=== PATIENT | male | born 1980 | race Two or more races ===

== ENCOUNTER 2016-05-16 22:59 | Emergency (ER) | payer MEDICAID ==
[~2016-05-16] VITALS: Ht 167.6 cm; Wt 99.8 kg
[~2016-05-16 22:59] MED LIST: BACTRIM DS TAB1 EAC1 ORAL; CLINDAMYCIN HC150 MG ORAL; KEFLEX500 MG ORAL; NKM
[2016-05-16] MEDS ORDERED: NKM (23:09)
[2016-05-16] MEDS ORDERED: IBUPROFEN600 MG ORAL (23:51)
--- NOTE | 2016-05-16 23:58 | Emergency Room Report ---
History of Present Illness General Chief Complaint: Lower Extremity Injury Source: Patient Present Illness HPI Is a 35-year-old male presents with right ankle pain. He slipped and twisted his right ankle earlier today. Able to walk on it. Tender to walking. Pain is 4/10. No radiation. Denies any other injury. Allergies: Coded Allergies: No Known Allergies (Unverified , 10/21/14) Patient History Past Medical History: see triage record, old chart reviewed Past Surgical History: none Pertinent Family History: none Social History: Denies: smoking Immunizations: other Reviewed Nursing Documentation: PMH: Agreed, PSxH: Agreed Nursing Documentation-PMH Hx Neurological Problems: Yes - back pain Review of Systems Eye: Denies: blurred vision, eye pain ENT: Denies: ear pain, nose congestion, throat swelling Respiratory: Denies: cough, shortness of breath Cardiovascular: Denies: chest pain, palpitations Gastrointestinal: Denies: abdominal pain, diarrhea, nausea, vomiting Musculoskeletal: Reports: joint pain, Denies: back pain Skin: Denies: rash Neurological: Denies: headache, numbness Endocrine: Denies: increased thirst, increased urine Hematologic/Lymphatic: Denies: easy bruising All Other Systems: negative except mentioned in HPI Physical Exam Vital Signs Date Time Temp Pulse Resp B/P Pulse Ox O2 Delivery O2 Flow Rate FiO2 05/16/16 23:02 97.9 70 16 113/71 99 Room Air vitals normal Sp02 EP Interpretation: reviewed, normal General Appearance: well appearing, no apparent distress, alert Head: normocephalic, atraumatic Eyes: bilateral eye EOMI, bilateral eye PERRL ENT: hearing grossly normal, normal pharynx Neck: full range of motion, supple, no meningismus Respiratory: chest non-tender, lungs clear, normal breath sounds Cardiovascular #1: regular rate, rhythm, no murmur Gastrointestinal: normal bowel sounds, non tender, no mass, no organomegaly, no bruit, non-distended Musculoskeletal: back normal, gait/station normal, normal range of motion, other - Right ankle: Mild tenderneness and edema to lateral malleoulus. NVI. ankle is stable. pulses normal Psychiatric: mood/affect normal Skin: warm/dry Procedures Splinting Splinting : Consent: Verbal Location: Right ankle Pre-Made Type: aircast Splint: coaptation Pre-Proc Neuro Vasc Exam: normal Post-Proc Neuro Vasc Exam: normal Patient Tolerated: Well Complications: None Medical Decision Making Diagnostic Impression: Primary Impression: Right ankle sprain Qualified Codes: S93.401A - Sprain of unspecified ligament of right ankle, initial encounter ER Course Patient with ankle sprain. No fracture dislocation. Other X-Ray Diagnostic Results Other X-Ray Diagnostic Results : X-Ray Ordered: Right ankle Date: May 16, 2016 Time: 23:57 EP Interpretation: Yes Findings: no fractures, no dislocation, no soft tissue swelling Number of Views: 3 Last Vital Signs Date Time Temp Pulse Resp B/P Pulse Ox O2 Delivery O2 Flow Rate FiO2 05/16/16 23:02 97.9 70 16 113/71 99 Room Air Status: improved Disposition: HOME, SELF-CARE Condition: Stable Scripts Ibuprofen* (MOTRIN*) 600 Mg Tablet 600 MG ORAL THREE TIMES A DAY, #30 TAB 0 Refills Prov: ANURADHA DE LUNA M.D. 05/16/16 Referrals: NOT CHOSEN [facility]/,REFERRING (PCP) Patient Instructions: Ankle Sprain Additional Instructions: Followup with your DrTan in 7 days. Return if worse. ANURADHA DE LUNA M.D. May 16, 2016 23:58
[2016-05-17 00:05] VITALS: BP 113/71
--- NOTE | 2016-05-19 08:09 | Diagnostic Imaging Report ---
Indication: Right ankle pain Technique: Right ankle 3 views Comparison: None Findings: There is no acute fracture or dislocation. Bone mineralization is normal. Soft tissues are grossly unremarkable. Impression: No acute osseous abnormality.
== END 2016-05-17 00:05 | disposition home or self-care (01) ==
LOC: EMR 23:15
DX: S93.401A Sprain of unspecified ligament of right ankle, initial encounter (principal); X50.1XXA Overexertion from prolonged static or awkward postures, initial encounter; Y92.9 Unspecified place or not applicable; Y99.8 Other external cause status
CPT/HCPCS: 29540; 99283

== ENCOUNTER 2018-06-26 20:28 | Emergency (ER) | payer MEDICAID ==
[~2018-06-26] VITALS: Ht 172.7 cm; Wt 104.3 kg
[~2018-06-26 20:28] MED LIST changes: +IBUPROFEN600 MG ORAL
--- NOTE | 2018-06-26 20:58 | NUR ---
ED Nurse Note: Pt arrived ED from home. C/o right big toe pain 9/10 and swollen since 2 months ago after fell at home. Pt is A/O x4. Vital signs stable at this time, waiting for orders.
[2018-06-26 21:20] VITALS: BP 118/81
--- NOTE | 2018-06-26 21:20 | NUR ---
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 Pt left ED after they were told that " if there is a fracture for 2 months old, we may not fix for it", they decided to leave ED without inform RN or MD, but they told the receiptionist. Pt's ID band removed. Pt is able to ambulate with steady gait and took all belongings. Accompanied by his Son.
--- NOTE | 2018-06-26 21:36 | Emergency Room Report ---
History of Present Illness General Chief Complaint: Lower Extremity Injury Source: Patient Present Illness HPI 37-year-old male presents ED for evaluation. Complaining of right big toe pain. Started 2 months ago after "injuring it". States she's had persistent pain since. Has not been evaluated for this yet. Pain is throbbing, 8 out of 10, nonradiating. Is able to bear weight. No other aggravating or relieving factors. Denies any other associated symptoms Allergies: Coded Allergies: No Known Allergies (Unverified , 10/21/14) Patient History Past Medical History: none Past Surgical History: none Pertinent Family History: none Social History: Denies: smoking, alcohol use, drug use Immunizations: UTD Reviewed Nursing Documentation: PMH: Agreed; PSxH: Agreed Nursing Documentation-PMH Hx Neurological Problems: Yes - back pain Review of Systems All Other Systems: negative except mentioned in HPI Physical Exam Vital Signs Date Time Temp Pulse Resp B/P (MAP) Pulse Ox O2 Delivery O2 Flow Rate FiO2 06/26/18 20:49 98.1 67 19 118/81 98 Room Air Sp02 EP Interpretation: reviewed, normal General Appearance: no apparent distress, alert, GCS 15, non-toxic Head: normocephalic Eyes: bilateral eye normal inspection, bilateral eye PERRL ENT: normal ENT inspection Neck: normal inspection Respiratory: normal inspection Cardiovascular #1: normal inspection Gastrointestinal: normal inspection Rectal: deferred Genitourinary: no CVA tenderness Musculoskeletal: tender - R big toe Neurologic: alert, oriented x3, responsive, motor strength/tone normal, sensory intact, speech normal Psychiatric: normal inspection Skin: normal inspection Lymphatic: normal inspection Medical Decision Making Diagnostic Impression: Primary Impression: Toe pain Qualified Codes: M79.674 - Pain in right toe(s) ER Course Hospital Course 37-year-old M presents to ED complaining of R big toe pain Differential diagnoses include: Fracture, dislocation, sprain, contusion Clinical course Patient placed on stretcher. After initial history and physical, I ordered xrays of R foot Patient eloped from ED. observed walking in a steady fashion Last Vital Signs Date Time Temp Pulse Resp B/P (MAP) Pulse Ox O2 Delivery O2 Flow Rate FiO2 06/26/18 20:49 98.1 67 19 118/81 98 Room Air Status: unchanged Disposition: ELOPED Condition: Stable Referrals: NOT CHOSEN [facility]/MD,REFERRING (PCP) Shaheed Silver MD Jun 26, 2018 21:36
== END 2018-06-26 21:30 | disposition left against medical advice (07) ==
LOC: EMR 21:29
DX: M79.674 Pain in right toe(s) (principal)
CPT/HCPCS: 99281